=== PATIENT | male | born 1965 | race Caucasian/White ===

== ENCOUNTER 2024-06-10 01:10 | Emergency (ER) | payer MEDICARE ==
[~2024-06-10] VITALS: Ht 167.6 cm; Wt 82.7 kg
[~2024-06-10 01:10] MED LIST: AMIT50TA15 PO; CLON1TAB2 PO; FLO0.1T PO; HYDR2TAB28 PO; METH-603 PO; [UNRECOGNIZED DRUG - CODE] PO
[2024-06-10] MEDS: acetaminophen 325mg tablet PO ONE (03:48)
[2024-06-10] MEDS: TETanus/Pertussis (Acell)/Diphther VAC/PF (Tdap-Adult) 0.5ml syringe IMVAC ONE (03:49)
[2024-06-10] MEDS: bacitracin 15gm ointment TP ONE (03:49)
[2024-06-10 04:32] VITALS: BP 107/66; PULSE 103; RESP 18; TEMP 98.7; O2SAT 94
== END 2024-06-10 04:48 | disposition home or self-care (01) ==
LOC: ER 01:10
DX: S09.8XXA Other specified injuries of head, initial encounter (principal); J45.909 Unspecified asthma, uncomplicated; F41.9 Anxiety disorder, unspecified; Z90.49 Acquired absence of other specified parts of digestive tract; Z90.79 Acquired absence of other genital organ(s); Z88.5 Allergy status to narcotic agent; Z88.8 Allergy status to other drugs, medicaments and biological substances; Z79.899 Other long term (current) drug therapy; Z56.0 Unemployment, unspecified; Y04.8XXA Assault by other bodily force, initial encounter; Y93.89 Activity, other specified; Y92.89 Other specified places as the place of occurrence of the external cause; Y99.8 Other external cause status
CPT/HCPCS: 70450; 90715; 99285; A6402; G0008; 90471; A6449

== ENCOUNTER 2024-06-23 17:36 | Emergency (ER) | payer SELFPAY ==
[~2024-06-23] VITALS: Ht 167.6 cm; Wt 9.1 kg
[2024-06-23 18:08] VITALS: BP 162/87; PULSE 100; RESP 16; TEMP 97.2; O2SAT 96
== END 2024-06-23 18:37 | disposition left against medical advice (07) ==
LOC: ER 17:37
DX: F22 Delusional disorders (principal); Z53.21 Procedure and treatment not carried out due to patient leaving prior to being seen by health care provider; Z88.5 Allergy status to narcotic agent; Z88.8 Allergy status to other drugs, medicaments and biological substances; Y08.89XA Assault by other specified means, initial encounter; Y93.89 Activity, other specified; Y92.89 Other specified places as the place of occurrence of the external cause; Y99.8 Other external cause status

== ENCOUNTER 2024-06-23 19:58 | Emergency (ER) | payer SELFPAY ==
[~2024-06-23] VITALS: Ht 167.6 cm; Wt 82.7 kg
[2024-06-23 22:00] VITALS: TEMP 98.9
[2024-06-23 22:27] VITALS: BP 161/99; PULSE 97; RESP 16; O2SAT 98
== END 2024-06-23 22:29 | disposition home or self-care (01) ==
LOC: ER 19:58
DX: G89.29 Other chronic pain (principal); M54.59 Other low back pain; R45.1 Restlessness and agitation; F41.9 Anxiety disorder, unspecified; J45.909 Unspecified asthma, uncomplicated; Z90.49 Acquired absence of other specified parts of digestive tract; Z88.5 Allergy status to narcotic agent; Z90.79 Acquired absence of other genital organ(s); Z88.8 Allergy status to other drugs, medicaments and biological substances; Z56.0 Unemployment, unspecified; Z79.899 Other long term (current) drug therapy
CPT/HCPCS: 82948; 99282

== ENCOUNTER 2024-07-13 02:27 | Emergency (ER) | payer OTHER ==
[~2024-07-13] VITALS: Ht 167.6 cm; Wt 98.9 kg
[2024-07-13] MEDS: ondansetron 4mg rapidly disintigrating tab PO ONE (03:34)
[2024-07-13] MEDS: acetaminophen 325mg tablet PO ONE (03:34)
[2024-07-13] MEDS: benzonatate 100mg capsule PO ONE (03:34)
[2024-07-13] MEDS: ibuprofen tablet 400 MG TABLET PO ONE (03:34)
[2024-07-13 05:12] VITALS: BP 120/69; PULSE 88; RESP 15; TEMP 98.3; O2SAT 94
== END 2024-07-13 05:40 | disposition home or self-care (01) ==
LOC: ER 02:27
DX: B34.9 Viral infection, unspecified (principal); F41.9 Anxiety disorder, unspecified; J45.909 Unspecified asthma, uncomplicated; Z88.5 Allergy status to narcotic agent; Z90.79 Acquired absence of other genital organ(s); Z90.49 Acquired absence of other specified parts of digestive tract; Z98.890 Other specified postprocedural states; Z20.822 Contact with and (suspected) exposure to COVID-19
CPT/HCPCS: 36415; 71045; 87502; 87503; 87811; 99284

== ENCOUNTER 2024-07-27 04:11 | Emergency (ER) | payer OTHER ==
[~2024-07-27] VITALS: Ht 167.6 cm; Wt 97.7 kg
[2024-07-27 05:19] LABS: BASOPHILS # (AUTO) 0.1 X10'3 (0-0.2); BASOPHILS % (AUTO) 1.2 % (0-1); EOSINOPHILS # (AUTO) 0.2 X10'3 (0-0.9); EOSINOPHILS % (AUTO) 2.7 % (0-6); HEMATOCRIT 49.4 % (42.0-52.0); HEMOGLOBIN 17.1 g/dl (14.0-17.9); LYMPHOCYTES % (AUTO) 10.5 % (21-51); MEAN CORPUSCULAR HEMOGLOBIN 30.8 PG (27.0-31.0); MEAN CORPUSCULAR HGB CONC 34.6 g/dL (33.0-36.5); MEAN CORPUSCULAR VOLUME 89.3 FL (78-98); MEAN PLATELET VOLUME 7.5 FL (7.4-10.4); MONOCYTES # (AUTO) 0.8 X10'3 (0-0.9); MONOCYTES % (AUTO) 8.2 % (2-12); NEUTROPHILS # (AUTO) 7.2 X10'3 (1.8-7.7); NEUTROPHILS % (AUTO) 77.4 % (42-75); PLATELET COUNT 385 X10'3 (140-440); RED BLOOD COUNT 5.53 X10'6 (4.70-6.10); RED CELL DISTRIBUTION WIDTH 13.6 % (11.5-14.5); WHITE BLOOD COUNT 9.3 X10'3 (4.5-11.0)
[2024-07-27 05:35] LABS: ALANINE AMINOTRANSFERASE 10 U/L (12-78); ALBUMIN 3.4 G/DL (3.4-5.0); ALBUMIN/GLOBULIN RATIO 0.8 (1.1-1.5); ALKALINE PHOSPHATASE 68 IU/L (46-116); ANION GAP 9 (8-16); ASPARTATE AMINO TRANSFERASE 18 U/L (10-37); BLOOD UREA NITROGEN 9 MG/DL (7-18); BUN/CREATININE RATIO 7.6 (10.0-20.0); CALCIUM 8.6 MG/DL (8.5-10.1); CHLORIDE 101 MMOL/L (99-107); CREATININE 1.18 MG/DL (0.60-1.10); GLUCOSE 100 MG/DL (70-104); POTASSIUM 4.1 MMOL/L (3.5-5.1); SODIUM 135 MMOL/L (135-145); TOTAL CARBON DIOXIDE 25.3 MMOL/L (24-32); TOTAL PROTEIN 7.8 G/DL (6.4-8.2); eCRCL 63 ML/MIN; eGFR 64 ML/MIN
[2024-07-27 06:04] LABS: PRO BRAIN NATRIURETIC PEPTIDE < 30 PG/ML (0-125)
[2024-07-27] MEDS: cyclobenzaprine 10mg tablet PO ONE (10:24)
[2024-07-27] MEDS: ketorolac trometh 30MG/ML vial 30 MG/ML VIAL IV ONE (10:24)
[2024-07-27] MEDS ORDERED: CYCL-394 PO (10:28)
[2024-07-27] MEDS ORDERED: DICL50TA8 PO (10:29)
[2024-07-27 11:08] VITALS: BP 121/69; PULSE 97; RESP 17; TEMP 98.5; O2SAT 97
== END 2024-07-27 11:12 | disposition home or self-care (01) ==
LOC: ER 04:11
DX: M54.50 Low back pain, unspecified (principal); F41.9 Anxiety disorder, unspecified; J45.909 Unspecified asthma, uncomplicated; Z88.5 Allergy status to narcotic agent; Z88.8 Allergy status to other drugs, medicaments and biological substances; Z90.79 Acquired absence of other genital organ(s); Z90.49 Acquired absence of other specified parts of digestive tract
CPT/HCPCS: 36415; 71045; 80053; 83880; 84484; 85025; 93005; 99285; A4615

== ENCOUNTER 2024-07-28 05:15 | Emergency (ER) | payer OTHER ==
[~2024-07-28] VITALS: Ht 180.3 cm; Wt 83.1 kg
[~2024-07-28 05:15] MED LIST changes: +CYCL-394 PO; +DICL50TA8 PO
[2024-07-28] MEDS: normal saline 1000ml 1,000 ML IV ONE (11:35)
[2024-07-28 11:38] VITALS: BP 143/86; RESP 18; O2SAT 94
[2024-07-28 11:52] LABS: PROTHROMBIN TIME 10.9 SECONDS (9.0-12.0)
[2024-07-28 12:11] LABS: ALANINE AMINOTRANSFERASE 9 U/L (12-78); ALKALINE PHOSPHATASE 70 IU/L (46-116); ASPARTATE AMINO TRANSFERASE 12 U/L (10-37); BILIRUBIN,TOTAL 1.3 MG/DL (0.1-1.0); BLOOD UREA NITROGEN 10 MG/DL (7-18); BUN/CREATININE RATIO 7.8 (10.0-20.0); C-REACTIVE PROTEIN 1.48 MG/DL (0.0-0.5); CALCIUM 8.4 MG/DL (8.5-10.1); CREATININE 1.28 MG/DL (0.60-1.10); ETHANOL < 10 MG/DL (<10); GLUCOSE 104 MG/DL (70-104); LIPASE 115 U/L (16-77); TOTAL CARBON DIOXIDE 29.7 MMOL/L (24-32); eCRCL 69 ML/MIN; eGFR 58 ML/MIN
[2024-07-28 12:16] LABS: LACTIC SEPSIS 2.1 MMOL/L (0.4-2.0)
[2024-07-28 12:23] LABS: BASOPHILS % (AUTO) 0.3 % (0-1); EOSINOPHILS # (AUTO) 0.2 X10'3 (0-0.9); EOSINOPHILS % (AUTO) 1.9 % (0-6); HEMATOCRIT 49.7 % (42.0-52.0); HEMOGLOBIN 16.8 g/dl (14.0-17.9); LYMPHOCYTES # (AUTO) 0.4 X10'3 (1.1-4.8); LYMPHOCYTES % (AUTO) 2.9 % (21-51); MEAN CORPUSCULAR HEMOGLOBIN 30.6 PG (27.0-31.0); MEAN CORPUSCULAR HGB CONC 33.9 g/dL (33.0-36.5); MEAN CORPUSCULAR VOLUME 90.2 FL (78-98); MEAN PLATELET VOLUME 7.4 FL (7.4-10.4); MONOCYTES # (AUTO) 0.8 X10'3 (0-0.9); MONOCYTES % (AUTO) 6.1 % (2-12); NEUTROPHILS # (AUTO) 11.9 X10'3 (1.8-7.7); NEUTROPHILS % (AUTO) 88.8 % (42-75); PLATELET COUNT 370 X10'3 (140-440); RED BLOOD COUNT 5.51 X10'6 (4.70-6.10); RED CELL DISTRIBUTION WIDTH 13.3 % (11.5-14.5); WHITE BLOOD COUNT 13.5 X10'3 (4.5-11.0)
[2024-07-28 12:33] LABS: ALBUMIN 3.3 G/DL (3.4-5.0); ALBUMIN/GLOBULIN RATIO 0.7 (1.1-1.5); ANION GAP 3 (8-16); CHLORIDE 100 MMOL/L (99-107); MAGNESIUM 1.8 MG/DL (1.5-2.4); SODIUM 133 MMOL/L (135-145); TOTAL PROTEIN 7.9 G/DL (6.4-8.2)
[2024-07-28 12:35] LABS: POTASSIUM 4.9 MMOL/L (3.5-5.1)
[2024-07-28 14:59] VITALS: PULSE 16
== END 2024-07-28 15:39 | disposition home or self-care (01) ==
LOC: ER 05:16
DX: R19.7 Diarrhea, unspecified (principal); J45.909 Unspecified asthma, uncomplicated; F41.9 Anxiety disorder, unspecified; Z88.5 Allergy status to narcotic agent; Z90.49 Acquired absence of other specified parts of digestive tract; Z88.8 Allergy status to other drugs, medicaments and biological substances; Z79.899 Other long term (current) drug therapy; Z56.0 Unemployment, unspecified
CPT/HCPCS: 36415; 80053; 80320; 82140; 83605; 83690; 83735; 84145; 84484; 85025; 85610; 86140; 87502; 87503; 93005; 96360; 99284; J7030

== ENCOUNTER 2024-08-02 00:50 | Emergency (ER) | payer OTHER ==
[~2024-08-02] VITALS: Ht 167.6 cm; Wt 77.3 kg
[2024-08-02 00:53] VITALS: BP 156/94; PULSE 97; RESP 16; TEMP 98.8; O2SAT 94
== END 2024-08-02 04:38 | disposition left against medical advice (07) ==
LOC: ER 00:51
DX: Z00.00 Encounter for general adult medical examination without abnormal findings (principal); Z53.21 Procedure and treatment not carried out due to patient leaving prior to being seen by health care provider